=== PATIENT | male | born 1975 | race American Indian/Alaskan Native ===

== ENCOUNTER 2018-05-30 15:45 | Emergency (ER) | payer MEDICAID ==
[2018-05-30] MEDS ORDERED: BOOSTRIX IM ONE (18:17)
[2018-05-30] MEDS ORDERED: XYLOCAINE 2% INFILTRATI STA (18:17)
[2018-05-30] MEDS ORDERED: NORCO 5/325 PO STA (18:17)
--- NOTE | 2018-05-30 20:42 | Emergency Department Report ---
ED Upper Extremity Inj HPI - General Chief Complaint: Wound/Laceration Stated Complaint: RT FOREARM LACERATION Time Seen by Provider: 05/30/18 18:11 Source: patient Mode of arrival: Ambulatory Limitations: No Limitations - Related Data Previous Rx's Medication Instructions Recorded Last Taken Type ALBUTEROL Inhaler (OR & NICU) 2 puff IH QID PRN #1 inhalation 05/18/14 Unknown Rx [ProAir HFA Inhaler] Prednisone [Prednisone 10 mg 10 mg PO .TAPER #1 tab.ds.pk 05/18/14 Unknown Rx (6-Day Pack, 21 Tabs)] ALBUTEROL Inhaler(NF) [VENTOLIN 2 puff IH Q4HR PRN #1 inha 01/23/18 Unknown Rx Inhaler(NF)] Benzonatate [Tessalon Perles] 100 mg PO Q8HR #15 capsule 01/23/18 Unknown Rx Ibuprofen [Motrin] 800 mg PO Q8HR PRN #30 tablet 01/23/18 Unknown Rx predniSONE [Deltasone] 20 mg PO QDAY #15 tab 01/23/18 Unknown Rx traMADol [Ultram] 50 mg PO Q6HR PRN #24 tablet 01/23/18 Unknown Rx Chlorhexidine Gluconate [Hibiclens] 10 ml TP BID #240 liquid 05/30/18 Unknown Rx cephALEXin [Keflex] 500 mg PO Q6HR #40 capsule 05/30/18 Unknown Rx Allergies Allergy/AdvReac Type Severity Reaction Status Date / Time shellfish derived Allergy Swelling Verified 05/18/14 00:43 ED Review of Systems ROS: Stated complaint: RT FOREARM LACERATION Other details as noted in HPI ED Past Medical Hx - Past Medical History Previous Medical History?: Yes Hx Hypertension: No Hx CVA: No Hx Heart Attack/AMI: No Hx Congestive Heart Failure: No Hx Diabetes: No Hx Deep Vein Thrombosis: No Hx Pulmonary Embolism: No Hx GERD: No Hx Liver Disease: No Hx Renal Disease: No Hx Sickle Cell Disease: No Hx Arthritis: No Hx Headaches / Migraines: No Hx Seizures: No Hx Kidney Stones: No Hx Psychiatric Treatment: No Hx Asthma: Yes Hx COPD: No Hx Tuberculosis: No Hx Dementia: No Hx HIV: No - Surgical History Past Surgical History?: No Hx Coronary Stent: No Hx Open Heart Surgery: No Hx Pacemaker: No Hx Internal Defibrillator: No Hx Cholecystectomy: No Hx Appendectomy: No Hx Breast Surgery: No - Social History Smoking Status: Current Some Day Smoker Substance Use Type: Alcohol - Medications Home Medications: Home Medications Medication Instructions Recorded Confirmed Last Taken Type ALBUTEROL Inhaler (OR & NICU) 2 puff IH QID PRN #1 inhalation 05/18/14 Unknown Rx [ProAir HFA Inhaler] Prednisone [Prednisone 10 mg 10 mg PO .TAPER #1 tab.ds.pk 05/18/14 Unknown Rx (6-Day Pack, 21 Tabs)] ALBUTEROL Inhaler(NF) [VENTOLIN 2 puff IH Q4HR PRN #1 inha 01/23/18 Unknown Rx Inhaler(NF)] Benzonatate [Tessalon Perles] 100 mg PO Q8HR #15 capsule 01/23/18 Unknown Rx Ibuprofen [Motrin] 800 mg PO Q8HR PRN #30 tablet 01/23/18 Unknown Rx predniSONE [Deltasone] 20 mg PO QDAY #15 tab 01/23/18 Unknown Rx traMADol [Ultram] 50 mg PO Q6HR PRN #24 tablet 01/23/18 Unknown Rx Chlorhexidine Gluconate [Hibiclens] 10 ml TP BID #240 liquid 05/30/18 Unknown Rx cephALEXin [Keflex] 500 mg PO Q6HR #40 capsule 05/30/18 Unknown Rx ED Physical Exam - General Limitations: No Limitations Critical care attestation.: If time is entered above; I have spent that time in minutes in the direct care of this critically ill patient, excluding procedure time. ED Disposition Disposition: [id number] TO HOME OR SELFCARE Condition: Stable Instructions: Puncture Wound (ED) Prescriptions: Chlorhexidine Gluconate [Hibiclens] 10 ml TP BID #240 liquid cephALEXin [Keflex] 500 mg PO Q6HR #40 capsule Referrals: AJ GILBERT MD [Primary Care Provider] - 3-5 Days
[2018-05-30 20:55] VITALS: BP 137/89
== END 2018-05-30 20:53 | disposition home or self-care (01) ==
LOC: ED 15:45
DX: S51.811A Laceration without foreign body of right forearm, initial encounter (principal); F17.200 Nicotine dependence, unspecified, uncomplicated; X58.XXXA Exposure to other specified factors, initial encounter; Y93.89 Activity, other specified; Y92.89 Other specified places as the place of occurrence of the external cause; Y99.8 Other external cause status
CPT/HCPCS: 90471; 90715